=== PATIENT | male | born 1980 | race Two or more races ===

== ENCOUNTER 2021-03-16 14:18 | Emergency (ER) | payer MEDICAID ==
[~2021-03-16] VITALS: Ht 165.1 cm; Wt 88.5 kg
--- NOTE | 2021-03-16 14:30 | NUR ---
GRANT 87 FROM [facility] FOR HYPERGLYCEMIA BS=OVER 400 PER EMS REPORT. ON ROOM AIR, BREATHING EVENLY AND UNLABORED. CONNECTED TO THE MONITOR AND PULSE OX. KEPT COMFORTABLE, WILL CONTINUE TO MONITOR ACCORDINGLY.
[2021-03-16] MEDS ORDERED: ONDANSETRON HCL/PF 4 MG/2 ML VIAL IVP ONE (15:00)
[2021-03-16] MEDS ORDERED: PANTOPRAZOLE 40 MG VIAL IV ONE (15:00)
[2021-03-16] MEDS ORDERED: IV D5/ 0.9% NACL 1,000 ML IV ONE (15:00)
[2021-03-16] MEDS ORDERED: IV NS 0.9% 1,000 ML BAG IV ONE (15:00)
[2021-03-16] MEDS ORDERED: HYDROMORPHONE INJ 2 MG/ML DISP.SYRIN IV ONE (15:00)
[2021-03-16 15:03] LABS: BASOPHILS % (AUTO) 0.2 % (0.0-2.0); EOSINOPHILS % (AUTO) 4.8 % (0.0-6.0); HEMATOCRIT 34 % (39-51); HEMOGLOBIN 11.4 g/dL (13.5-17.5); LYMPHOCYTES # (AUTO) 0.8 K/uL (0.8-4.8); LYMPHOCYTES % (AUTO) 17.1 % (20.0-44.0); MEAN CORPUSCULAR HGB CONC 34 g/dl (31.0-36.0); MEAN CORPUSCULAR VOLUME 91 fL (80-96); MONOCYTES # (AUTO) 0.4 K/uL (0.1-1.30); MONOCYTES % (AUTO) 8.4 % (2.0-12.0); NEUTROPHILS # (AUTO) 3.4 K/uL (1.8-8.9); NEUTROPHILS % (AUTO) 69.5 % (43.0-81.0); PLATELET COUNT (AUTO) 184 K/uL (150-450); WHITE BLOOD COUNT (AUTO) 4.9 K/uL (4.3-11.0)
[2021-03-16] MEDS ORDERED: PANTOPRAZOLE 40 MG VIAL ONE (15:03)
[2021-03-16] MEDS ORDERED: ONDANSETRON HCL/PF 4 MG/2 ML VIAL ONE (15:03)
[2021-03-16] MEDS ORDERED: HYDROMORPHONE 1 MG/1 ML DISP.SYRIN ONE (15:04)
[2021-03-16 15:16] LABS: CALCIUM, SERUM 8.3 mg/dL (8.5-10.1); CARBON DIOXIDE 21 mmol/L (21-32); CHLORIDE 101 mmol/L (98-107); POTASSIUM 4.5 mmol/L (3.5-5.1); SODIUM SERUM 137 mmol/L (136-145); UREA NITROGEN, BLOOD 9 mg/dL (7-18)
[2021-03-16 15:19] LABS: GLUCOSE 499 mg/dL (74-106)
[2021-03-16 15:20] LABS: ALANINE AMINOTRANSFERASE 49 U/L (12-78); ALBUMIN 2.9 g/dL (3.4-5.0); ALKALINE PHOSPHATASE 162 U/L (46-116); ASPARTATE AMINOTRANSFERASE 47 U/L (15-37); BILIRUBIN,DIRECT 0.4 mg/dL (0.0-0.2); BILIRUBIN,TOTAL 0.9 mg/dL (0.2-1.0); LIPASE 31 U/L (73-393); TOTAL PROTEIN, SERUM 7.4 g/dL (6.4-8.2)
[2021-03-16] MEDS ORDERED: POTASSIUM CHLORIDE 20 MEQ TAB.PRT.SR PO ONE ×2 (15:30→15:56)
[2021-03-16] MEDS ORDERED: INSULIN REGULAR, HUMAN 100 UNIT/ML 10 ML VIAL IV ONE (15:30)
[2021-03-16] MEDS ORDERED: HYDROMORPHONE HCL 2 MG TABLET PO PRN (15:30)
[2021-03-16] MEDS ORDERED: ONDA4TAB5 PO (15:36)
[2021-03-16] MEDS ORDERED: INSULIN REGULAR, HUMAN 100 UNIT/ML 10 ML VIAL ONE (15:58)
--- NOTE | 2021-03-16 17:15 | NUR ---
Patient discharged to home in stable condition. Written and verbal after care instructions given. Patient verbalizes understanding of instruction.IV removed. Catheter intact and site benign. Pressure and 4x4 applied to site. No bleeding noted.
--- NOTE | 2021-03-16 17:43 | NUR ---
patient verbalized "i am hearing voices, i want to kill myself, but no plan at this time". MD notified and aware. Security at bedisde and wanded the patient. Sitter at bedside for constant monitoring. Will continue to monitor accordingly.
[2021-03-16 18:18] LABS: ALCOHOL, BLOOD 64 mg/dL (0-0)
[2021-03-16 18:19] LABS: ACETAMINOPHEN < 2 ug/ml (10-30)
--- NOTE | 2021-03-16 20:14 | NUR ---
RAPID COVID SWAB WAS SENT TO LAB
--- NOTE | 2021-03-16 21:05 | NUR ---
UPDATED FACESHEET W/ PRESUMPTIVE MEDICAL INSURANCE AND RAPID COVID RESULTS WERE FAXED TO [facility]
--- NOTE | 2021-03-16 23:02 | NUR ---
PT GOT ACCEPTED AT [facility] AT [place] BY [address] KINSEY. [facility] ARRANGED FOR 0200 PER INTAKE'S REQUEST
--- NOTE | 2021-03-17 02:08 | NUR ---
report given to andrea at [facility]
[2021-03-17 02:18] VITALS: BP 127/77
--- NOTE | 2021-03-17 02:26 | NUR ---
[facility] AT BED SIDE TO BRAZER INDUCTION THE PT
[2021-03-17] MEDS ORDERED: INSULIN REGULAR, HUMAN 100 UNIT/ML 10 ML VIAL SQ ONE (02:30)
== END 2021-03-16 17:15 ==
LOC: ER 14:27
DX: R10.10 Upper abdominal pain, unspecified (principal); E11.65 Type 2 diabetes mellitus with hyperglycemia; Z90.49 Acquired absence of other specified parts of digestive tract; Z88.6 Allergy status to analgesic agent; F17.210 Nicotine dependence, cigarettes, uncomplicated; Z20.822 Contact with and (suspected) exposure to COVID-19; R45.851 Suicidal ideations; I10 Essential (primary) hypertension
CPT/HCPCS: 36415; 71045; 76705; 80048; 80076; 80143; 80307; 80320; 82962 ×3; 83690; 83735; 84484; 85025; 85730; 87426; 93970; 96361; 96372 ×2; 96374; 96375; 99285; 99406; C9113; C9803; J1170; J1815; J2405; J7030; G0480